=== PATIENT | male | born 1980 | race Caucasian/White ===

== ENCOUNTER 2021-10-18 01:02 | Day surgery (SDC) | payer OTHER, SELFPAY ==
[2021-10-04 11:27] VITALS: BMI 28.3
--- NOTE | 2021-10-17 13:48 | PM.HPGS ---
History of Present Illness History of Present Illness Consent: Risks, benefits, and alternatives have been discussed and questions answered. Patient agrees to proceed with procedure. Chief complaint: GERD, dysphagia Narrative: Harrison Gutierrez is a 41 year old male Who has been having dysphagia. He recently had a food bolus of steak get stuck in his esophagus when he was on vacation. He had gone to an emergency room. Finally the bolus passed on its own. He had an esophageal stricture dilated about 12 years ago. His last EGD 3 years ago showed reflux. He is not on any prescription medications for acid reflux. Review of Systems Review of Systems: All systems reviewed & are unremarkable except as noted in HPI and below PMFSH Past Medical History Medical History BMI 28.0-28.9,adult BMI 29.0-29.9,adult Dietary counseling and surveillance (11/17/17) Elevated liver function tests Encounter for general adult medical examination without abnormal findings Encounter for screening for diabetes mellitus Esophageal stricture Flu vaccine need Gastro-esophageal reflux disease without esophagitis Herpetic ramon Nonerosive esophageal reflux disease Other hyperlipidemia Screening for lipid disorders Screening for prostate cancer Screening for thyroid disorder Family History Family History Father Malignant neoplasm of prostate Dementia Mother No problems noted. Sibling GERD (gastroesophageal reflux disease) Social History Social History Smoking status: Never smoker Second hand tobacco smoke exposure: No Alcohol intake: current Alcohol use details: rarely Substance use: never Substance use type: does not use Living arrangements: with family Additional occupation/education comments: IT Gender identity (if verbalized by the patient): Male Spiritual care concerns: No Meds Home Medications and Allergies Home Medications Medication Instructions Recorded Confirmed Type pqfoqanc-jrnmwdijf-cotqqqss 3.5 1 drp EACH EYE QID 10/18/21 10/18/21 History mg/mL-10,000 unit/mL-0.1% eye drops Allergies Allergy/AdvReac Type Severity Reaction Status Date / Time No Known Allergies Allergy Verified 10/18/21 11:45 Exam Const: General: alert Orientation/consciousness: patient oriented x3 Resp: Auscultation: clear to auscultation bilaterally Cardio: Rhythm: regular rhythm GI: GI Palp: Yes Soft to palpation and No Tenderness to palpation present (GI) Neuro: General: patient oriented x3 Assessment and Plan Assessment and plan (1) GERD (gastroesophageal reflux disease): Code(s): K21.9 - Gastro-esophageal reflux disease without esophagitis Status: Acute Assessment and Plan: EGD with possible biopsy or dilatation or cautery.
[2021-10-18 11:47] VITALS: BP 144/75; PULSE 52; RESP 18; TEMP 36.2; O2SAT 100
[2021-10-18] MEDS: LACTATED RINGERS 1,000 ML 150 ML IV CONT (11:49)
--- NOTE | 2021-10-18 12:37 | P.PNAN_ITS ---
Anes - Initial Pre Proc Eval Procedure: Operation Date: 10/18/21 13:00 Proposed Procedures p Esophagogastroduodenoscopy - John Preston MD Date/Time: 10/18/21 12:37 Surgeon: John Preston MD Pre Op Diagnosis: GERD, dysphagia Patient Data Age: 41 Gender: M Height: 1.7 m Weight: 79.5 kg Last Vital Signs Temp 97.2 F L 10/18/21 11:47 Pulse 52 L 10/18/21 11:47 Resp 18 10/18/21 11:47 BP 144/75 H 10/18/21 11:47 Pulse Ox 100 10/18/21 11:47 O2 Del Method Room Air 10/18/21 11:47 Allergies Allergy/AdvReac Type Severity Reaction Status Date / Time No Known Allergies Allergy Verified 10/18/21 11:45 Home Medications Medication Instructions Recorded Confirmed Type jjqgqbpr-xaidukdks-ypyjawzk 3.5 1 drp EACH EYE QID 10/18/21 10/18/21 History mg/mL-10,000 unit/mL-0.1% eye drops Patient hx anesthesia problems: none Family hx anesthesia problems: none Results Review: All pre-operative results and documents have been reviewed as part of the pre- operative evaluation. [facility] Past Medical History Medical History (Updated 10/01/21 @ 11:42 by Margaux Cuba APRN) BMI 28.0-28.9,adult BMI 29.0-29.9,adult Dietary counseling and surveillance (11/17/17) Elevated liver function tests Encounter for general adult medical examination without abnormal findings Encounter for screening for diabetes mellitus Esophageal stricture Flu vaccine need Gastro-esophageal reflux disease without esophagitis Herpetic ramon Nonerosive esophageal reflux disease Other hyperlipidemia Screening for lipid disorders Screening for prostate cancer Screening for thyroid disorder Family History Family History Father Malignant neoplasm of prostate Dementia Mother No problems noted. 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 Informed Consent: The patient's anesthetic plan and its attendant risks and benefits were discussed with the patient/family/POA. Questions were solicited and answers p rovided to the satisfaction of the patient/family/POA.
[2021-10-18 13:11] VITALS: BP 125/64; PULSE 56; RESP 23; O2SAT 100
[2021-10-18 13:21] VITALS: BP 143/89; PULSE 52; RESP 16; O2SAT 100
[2021-10-18 13:31] VITALS: BP 143/88; PULSE 52; RESP 15; O2SAT 100
== END 2021-10-18 13:51 | disposition home or self-care (01) ==
PROVIDERS: PCP Family Medicine; Visit Provider Internal Medicine Gastroenterology
PROC: 0DJ08ZZ Inspection of Upper Intestinal Tract, Via Natural or Artificial Opening Endoscopic (ICD-10-PCS; CPT 43235; principal; 2021-10-18 13:00)
DX: K22.2 Esophageal obstruction (principal); K21.00 Gastro-esophageal reflux disease with esophagitis, without bleeding; K22.70 Barrett's esophagus without dysplasia
CPT/HCPCS: 43249; 88305; 88312; J2704; J7120

== ENCOUNTER 2024-10-13 11:21 | Outpatient (CLI) | payer BC, SELFPAY ==
--- NOTE | ~2024-10-13 | XR_ITS ---
X-rays right wrist Indication: Chronic pain posterior Comparison: None Technique: 4 views right wrist Findings/Impression: Unremarkable- 1. No fracture or dislocation right wrist. 2. No other acute abnormality noted. Reviewed, dictated and finalized at location R.
== END 2024-10-13 11:22 | disposition home or self-care (01) ==
LOC: MICIMG 11:23
PROVIDERS: PCP Family Medicine; Visit Provider Physician Assistant Medical
DX: M25.531 Pain in right wrist (principal); G89.29 Other chronic pain
CPT/HCPCS: 73110

== ENCOUNTER 2024-11-08 00:18 | Day surgery (SDC) | payer BC, SELFPAY ==
--- OUTSIDE RECORDS SUMMARY | 2024-10-22 07:15 | XMS_ITS | Continuity of Care Document ---
Author Organization [facility] Address [address] [place] [phone] Phone Care Team Providers Care Guest Services Manager Name Role Phone Chidi BRAXTON, FACC, Jodie Unavailable Unavailab le Medications Medication Instructions Dosage Effective Dates (start - stop) Status Comments pantoprazole 20 mg tablet,delayed release - Active Procedures Procedure Date CT HRT W/O DYE W/CA TEST Complex e/m visit add on OFFICE/OUTPATIENT VISIT, NEW Results Test Name Date and Time Measure Units Reference Range Abnormal Flag Status Comments Panel Description: Not Available Final [{Url}] <Url iRemMajorVer lizz=1 iRemMinorVer lizz=5.9.4 seq_no=e7a5 [id number] [id number] [id number] template_nam e=PacsEx>< Path><![CDAT A[https://ww w.poxxb311.c om/?f/iQ8WWs PmApYVC7uRJy xh8GhqGVt3T6 GkmNqnWivrj+ X/nu1bRatdVj Vec/3Vx6Q9po bmcHWnFZ7cPP XtGOujucJ5pS Ny7G3hjq22YC IjdDxFYVBIgL B/XEDE5r221v ]]></Path></ Url> Final Panel Description: CALCIUM SCORE Unknown Image CALCIUM SCORE 1 Advance Directives Directive Yes / No Effective Date File Name No Information Encounters Encounter Description Practice Location Reason(s) For Visit Diagnoses Date Provider Providers Copied on Encounter [facility], [address], [place], [place], [id number] , tel: [phone] [facility] Kwaku No Information [address]. [address] , [place], [place], [id number] , . tel: [phone] Referring Provider: Kendra [address], [place], [address]. tel:[phone] OFFICE/OUTPA TIENT VISIT, [facility], [address], [place], [place], [id number] , tel: [phone] [facility] Jm follow up (chief complaint) HyperlipidemiaEso phageal refluxFamilial hypercholesterole devante [address] Chidi Feliciano. [address], [place], [place], [id number] , . tel: [phone] Referring Provider: Kendra [address], [place], [address]. tel:[phone] Family History Family Member Type Diagnosis Age At Onset Mother Problem (finding) Hypertension Father Problem (finding) Cancer Mother Problem (finding) High cholesterol Mother Problem (finding) Cardiac arrhythmias Payers Payer name Insurance type Covered alliance party ID Authoriza tion(s) No Information Social History Type Description Quantity Date Captured Comments Sex Male Smoking Status No Information Chief Complaint And Reason For Visit No Information Reason For Referral Reason For Referral No Information Plan Of Treatment Date Type Action Status Appointment Harrison Gutierrez BOOKED Future Order: Lab Order Cardio I Q Advanced Lipid Panel and Inflammation Panel ([id number]), Ordered on: Ordered Future Order: Lab Order Cardio I Q Advanced Lipid Panel and Inflammation Panel ([id number]), Ordered on: Ordered Future Order: Radiology Order CT Cardiac CT Calcium Score (CASCOR) ([id number]), Ordered on: Ordered History Of Present Illness Encounter Date Complaint History Of Prese nt Illness follow up Functional Status Date Functional Assessmen t No Information Instructions Date Instruction Additional Infor mation No Information Assessments Type Assessment Date No Information Patient Care Teams Name Effective Dates (start - stop) Status Members No Information
[2024-10-22 13:09] VITALS: BMI 23.4
--- OUTSIDE RECORDS SUMMARY | 2024-11-08 00:20 | XMS_ITS | Clinical Summary ---
Author Organization [facility] Address [facility] [place] [address] Care Team Providers Care Ceramic Tile Installer Name Role Phone Unavailable Primary Care Provider Unavailabl e Social History Tobacco Use Types Packs/Day Years Used Date Smoking Tobacco: Never Assessed Sex and Gender Information Value Date Recorded Sex Assigned at Not on file Legal Sex Male 6:12 PM CDT Gender Identity Not on file Sexual Orientation Not on file Plan of Treatment Health Maintenance Due Date Last Done Comments Colorectal Cancer Screening Colonoscopy (10 Years) 1979 Annual Physical 1982 Hepatitis C 1997 DTaP, Tdap and Td Vaccines ( 1 - Tdap) 1998 Hepatitis B Vaccines (1 of 3 - 19+ 3-dose series) 1998 HPV Vaccines (1 - 3-dose SCD M series) 2006 COVID-19 Vaccine (2023-2 5 season) 2024 Meningococcal B Vaccine Aged Out No l onger eligible based on patient's age to complete this topic Meningococcal Vaccine Aged Out No kely ede eligible based on patient's age to complete this topic Pneumococcal Vaccine: Pediat rics (0 to 5 Years) and At-Risk Patients (6 to 49 Years) Aged Out No longer eligible b ased on patient's age to complete this topic RSV Immunizations Under 20 Months Aged Out No longer eligible based on patient's age to complete this topic
--- OUTSIDE RECORDS SUMMARY | 2024-11-08 00:21 | XMS_ITS | Continuity of Care Document ---
Author Organization [facility] Address [address] [facility] [address] [place] [id number] Insurance Providers Payer Plan Claims Address Claims Phone Policy Number Group Number Relation Employer Guarantor Name Guarantor Guarantor Address Guarantor Phone JESSE Kamara [employer] [address] [id number] tel:[phone] [id number] 1 [id number] Bc Federa l Bc [place] al [id number] [place] [id number] Problems Unknown Problems Results Test Result Date/Time Value / Unit Interp. Refere nce Range Lipid Panel[[id number]] Collected: 06/21/2024 09:49 PM Specimen Received: 06/21/2024 05:00 AM Source: [facility] Cholesterol, Total [[id number]] 06/22/2024 05:31 PM 284 mg/dL H 100-199 mg/d L Triglycerides [[id number]] 06/22/2024 12:26 PM 88 mg/dL 0-149 mg/dL HDL Cholesterol [[id number]] 06/22/2024 12:26 PM 58 mg/dL >39 mg/dL VLDL Cholesterol Tarun [[id number]] 06/22/2024 05:31 PM 15 mg/dL 5-40 mg/dL LDL Chol Calc ([facility]) [[id number]] 06/22/2024 05:31 PM 211 mg/dL H 0-99 mg/dL LDL Calc Comment: [[id number]] 06/22/2024 05:31 PM Consider evaluating for Fami lial Hypercholesterolemia(FH), ifclinically indicated. Hemoglobin A1c[[id number]] Collected: 06/21/2024 09:49 PM Specimen Received: 06/21/2024 05:00 AM Source: [facility] Hemoglobin A1c [[id number]] 06/22/2024 10:33 AM 5.6 % 4.8-5.6 % . Prediabetes: 5.7 - 6.4 Kailyn betes: >6.4 Glycemic control for adults with diabetes: 7.0 Comp. Metabolic Panel (14)[3 [id number]] Collected: 01/23/2024 11:37 PM Specimen Received: 01/23/2024 05:00 AM Source: [facility] Glucose [[id number]] 01/24/2024 10:37 AM 152 mg/dL H 70-99 mg/dL BUN [[id number]] 01/24/2024 10:36 AM 11 mg/dL 6-2 4 mg/dL Creatinine [[id number]] 01/24/2024 10:40 AM 0.97 mg/dL 0.76-1.27 mg/dL eGFR [322190] 01/24/2024 10:40 AM 98 mL/min/1.73 >59 mL/min/1.73 BUN/Creatinine Ratio [454155] 01/24/2024 10:40 AM 11 9-20 Sodium [909837] 01/24/2024 10:31 AM 137 mmol/L 134-144 mmol/L Potassium [669586] 01/24/2024 10:32 AM 3.7 mmol/L 3.5-5.2 mmol/L Chloride [631072] 01/24/2024 10:31 AM 97 mmol/L 96-106 mmol/L Carbon Dioxide, Total [272081] 01/24/2024 10:35 AM 26 mmol/L 20-29 mmol/L Calcium [890455] 01/24/2024 10:36 AM 9.7 mg/dL 8.7-10.2 mg/dL Protein, Total [896739] 01/24/2024 10:43 AM 7.9 g/dL 6.0-8.5 g/dL Albumin [055361] 01/24/2024 10:40 AM 4.8 g/dL 4.1-5.1 g/dL Globulin, Total [905626] 01/24/2024 10:43 AM 3.1 g/dL 1.5-4.5 g/dL Bilirubin, Total [993727] 01/24/2024 10:40 AM 0.4 mg/dL 0.0-1.2 mg/dL Alkaline Phosphatase [714687] 01/24/2024 10:41 AM 23 IU/L L 44-121 IU/L AST (SGOT) [366282] 01/24/2024 10:38 AM 20 IU/L 0-40 IU/L ALT (SGPT) [035651] 01/24/2024 10:40 AM 14 IU/L 0-44 IU/L Lipid Panel[[id number]] Collected: 01/23/2024 11:37 PM Specimen Received: 01/23/2024 05:00 AM Source: [facility] Cholesterol, Total [[id number]] 01/24/2024 11:08 AM 272 mg/dL H 100-199 mg/d L Triglycerides [830115] 01/24/2024 10:59 AM 100 mg/dL 0-149 mg/dL HDL Cholesterol [736407] 01/24/2024 11:07 AM 52 mg/dL >39 mg/dL VLDL Cholesterol Tarun [480767] 01/24/2024 11:08 AM 17 mg/dL 5-40 mg/dL LDL Chol Calc ([facility]) [883983] 01/24/2024 11:08 AM 203 mg/dL H 0-99 mg/dL LDL Calc Comment: [[id number]] 01/24/2024 11:08 AM Consider evaluating for Fami lial Hypercholesterolemia(FH), ifclinically indicated. Hemoglobin A1c[[id number]] Collected: 01/23/2024 11:37 PM Specimen Received: 01/23/2024 05:00 AM Source: [facility] Hemoglobin A1c [[id number]] 01/24/2024 10:05 AM 5.7 % H 4.8-5.6 % . Prediabetes: 5.7 - 6.4 Kailyn betes: >6.4 Glycemic control for adults with diabetes: 7.0 Allergies, adverse reactions, alerts No known allergies and adverse reactions Medications No administered medications reported Vital Signs No vital signs reported Social History No smoking Hx information available
[2024-11-08 12:05] VITALS: BMI 22.1
[2024-11-08 12:06] VITALS: BP 127/75; PULSE 64; RESP 16; TEMP 36.4; O2SAT 100
[2024-11-08] MEDS: LACTATED RINGERS 1,000 ML 150 ML IV CONT (12:12)
--- NOTE | 2024-11-08 12:48 | WPDANESEPPF ---
Anes - Initial Pre Proc Eval Procedure: Operation Date: 11/08/24 13:00 Proposed Procedures p EGD & Screening Colonoscopy - Reinier López MD Date/Time: 11/08/24 12:48 Surgeon: Reinier López MD Pre Op Diagnosis: GERD, Screening Patient Data Age: 44 Gender: M Height: 1.7 m Weight: 64 kg Last Vital Signs Temp 97.6 F 11/08/24 12:06 Pulse 64 11/08/24 12:06 Resp 16 11/08/24 12:06 BP 127/75 11/08/24 12:06 Pulse Ox 100 11/08/24 12:06 O2 Del Method Room Air 11/08/24 12:06 Allergies Allergy/AdvReac Type Severity Reaction Status Date / Time No Known Allergies Allergy Verified 11/08/24 12:03 Home Medications ?Medication ?Instructions ?Recorded ?Confirmed ?Type pantoprazole 20 mg tablet,delayed See Rx Instructions .Route 11/07/24 11/08/24 Rx release .COMPLEX #90 tabs Patient hx anesthesia problems: none Family hx anesthesia problems: none Results Review: All pre-operative results and documents have been reviewed as part of the pre-operative evaluation. [facility] Past Medical History Medical History Nonerosive esophageal reflux disease History of esophageal stricture Dietary counseling and surveillance (11/17/17) Elevated liver function tests Encounter for general adult medical examination without abnormal findings Encounter for screening for diabetes mellitus Esophageal stricture Flu vaccine need Gastro-esophageal reflux disease without esophagitis Herpetic ramon Other hyperlipidemia Screening for lipid disorders Screening for prostate cancer Screening for thyroid disorder BMI 29.0-29.9,adult Family History Family History Father Malignant neoplasm of prostate Dementia Mother No problems noted. Sibling GERD (gastroesophageal reflux disease) Social History Social History Social History: Caffeine-coffee, energy drinks-occasionally Smoking status: Never smoker Second hand tobacco smoke exposure: No Alcohol intake: current Alcohol use details: 1 drink every 2 weeks Substance use: never Substance use type: does not use Do You Feel Safe in your Home?: Yes Lack of Transportation: No Lack of Food: Never True Current Housing: I Have Housing Concerned About Future Housing: No Difficulty Paying Gas/Electric Bills: No Difficulty Paying for Meds: No Currently Unemployed: No Education: Bachelor's Degree Difficulty w/ Childcare or Family Care: No Living arrangements: with family Occupation/Education: occupation Additional occupation/education comments: IT Gender identity (if verbalized by the patient): Male Spiritual care concerns: No Anes - Eval Final PreProcedure Day of Procedure 11/08/24 12:48 Patient weight: normal Lungs: normal air movement Airway: Mallampati scale class II Neurological: alert and oriented Last oral intake: >/= 8 hours ASA classification: I Emergent: no Anesthetic plan: proceed Anesthesia type and monitoring: general GIVS and standard monitoring Results Review: All pre-operative results and documents have been reviewed as part of the pre-operative evaluation. Active, healthy, no cp or sob w activity. Informed Consent: The patient's anesthetic plan and its attendant risks and benefits were discussed with the patient/family/POA. Questions were solicited and answers provided to the satisfaction of the patient/family/POA.
--- NOTE | 2024-11-08 12:52 | PM.HPGS ---
History of Present Illness History of Present Illness Consent: Risks, benefits, and alternatives have been discussed and questions answered. Patient agrees to proceed with procedure. Chief complaint: GERD, Screening Narrative: Harrison Gutierrez is a 44 year old male with gerd and remote history of food bolus, last egd 2021- bx negative for Beach's only mild esophagitis. Here to reassess. Also first screening colonoscopy Review of Systems Review of Systems: All systems reviewed & are unremarkable except as noted in HPI and below PMFSH Past Medical History Medical History Nonerosive esophageal reflux disease History of esophageal stricture Dietary counseling and surveillance (11/17/17) Elevated liver function tests Encounter for general adult medical examination without abnormal findings Encounter for screening for diabetes mellitus Esophageal stricture Flu vaccine need Gastro-esophageal reflux disease without esophagitis Herpetic ramon Other hyperlipidemia Screening for lipid disorders Screening for prostate cancer Screening for thyroid disorder BMI 29.0-29.9,adult Family History Family History Father Malignant neoplasm of prostate Dementia Mother No problems noted. Sibling GERD (gastroesophageal reflux disease) Social History Social History Social History: Caffeine-coffee, energy drinks-occasionally Smoking status: Never smoker Second hand tobacco smoke exposure: No Alcohol intake: current Alcohol use details: 1 drink every 2 weeks Substance use: never Substance use type: does not use Do You Feel Safe in your Home?: Yes Lack of Transportation: No Lack of Food: Never True Current Housing: I Have Housing Concerned About Future Housing: No Difficulty Paying Gas/Electric Bills: No Difficulty Paying for Meds: No Currently Unemployed: No Education: Bachelor's Degree Difficulty w/ Childcare or Family Care: No Living arrangements: with family Occupation/Education: occupation Additional occupation/education comments: IT Gender identity (if verbalized by the patient): Male Spiritual care concerns: No Meds Home Medications and Allergies Home Medications ?Medication ?Instructions ?Recorded ?Confirmed ?Type pantoprazole 20 mg tablet,delayed See Rx Instructions .Route 11/07/24 11/08/24 Rx release .COMPLEX #90 tabs Allergies Allergy/AdvReac Type Severity Reaction Status Date / Time No Known Allergies Allergy Verified 11/08/24 12:03 Vital Signs Vital Signs - 24 hr 11/08/24 12:06 Temperature 97.6 F Pulse Rate 64 Respiratory Rate 16 Blood Pressure 127/75 Pulse Oximetry 100 Oxygen Delivery Room Air Exam Const: General: comfortable and no acute distress HENMT: Face/Nose/Sinus: Normal nares present Eyes: General: appearance normal, both eyes and all related structures Resp: Auscultation: clear to auscultation bilaterally Cardio: Rate: regular rate Rhythm: regular rhythm GI: Inspection: non-distended GI Palp: Yes Soft to palpation Skin: General skin exam: normal color Extrem: General: normal to inspection Psych: Mental Status: mental status grossly normal Assessment and Plan Assessment and plan (1) GERD (gastroesophageal reflux disease): Qualifiers: Esophagitis presence: esophagitis presence not specified Qualified Code(s): K21.9 - Gastro-esophageal reflux disease without esophagitis Code(s): K21.9 - Gastro-esophageal reflux disease without esophagitis Status: Acute Assessment and Plan: egd (2) Screening for colon cancer: Code(s): Z12.11 - Encounter for screening for malignant neoplasm of colon Status: Acute Assessment and Plan: colonoscopy
--- NOTE | 2024-11-08 13:04 | S_PTH ---
PATIENT: Harrison Gutierrez LOC: [facility]#:[id number] AGE/SX: 44/M ROOM: RE11/08/[address]: Reinier López MD : 1980 BED: DIS: 11/08/2024 SPEC #: [id number] RECD: 11/08/24 13:46 STATUS: CRISTIANA REEren #: [id number] IAN: 11/08/24 13:[address]: Reinier López DEPT: [facility] Surgical RECD BY: Narayan Austin ENTERED: 11/08/24 13:47 SP TYPE: Surgical OTHR DR: Shahriar Godwin MD Tissues: A - Esophageal Biopsy B - Gastric Biopsy Procedures: Hematoxylin and Eosin Stain Gross and Microscopic Level 4
--- NOTE | 2024-11-08 13:05 | SUR.OPER ---
EGD start 1256 end 1259, Colonoscopy start 1309
[2024-11-08 13:13] VITALS: BP 108/68; PULSE 62; RESP 15; O2SAT 99
[2024-11-08 13:23] VITALS: BP 100/72; PULSE 58; RESP 17; O2SAT 99
[2024-11-08 13:33] VITALS: BP 121/74; PULSE 58; RESP 16; O2SAT 100
== END 2024-11-08 13:42 | disposition home or self-care (01) ==
PROVIDERS: PCP Family Medicine; Referring Provider Physician Assistant Medical; Visit Provider Internal Medicine Gastroenterology
PROC: 0DJ08ZZ Inspection of Upper Intestinal Tract, Via Natural or Artificial Opening Endoscopic (ICD-10-PCS; CPT 45378; principal; 2024-11-08 13:00)
DX: Z12.11 Encounter for screening for malignant neoplasm of colon (principal); K64.8 Other hemorrhoids; K21.00 Gastro-esophageal reflux disease with esophagitis, without bleeding; E78.49 Other hyperlipidemia; Z87.19 Personal history of other diseases of the digestive system; Z80.42 Family history of malignant neoplasm of prostate
CPT/HCPCS: 43239; 45378; 88305; J2704; J7120